=== PATIENT | female | born 1985 | race Caucasian/White ===

== ENCOUNTER 2016-10-22 07:18 | Outpatient (CLI) | payer BC ==
[~2016-10-22] VITALS: Ht 154.9 cm; Wt 61.7 kg
[~2016-10-22 07:18] MED LIST: LOPE2TAB3 PO; PENT500C PO; SULF500TA PO
[2016-10-22] MEDS ORDERED: NS 1,000 ML IV ONE (08:00)
[2016-10-22] MEDS ORDERED: PROPOFOL 200 MG/20 ML VIAL As Ordered ONE ×2 (08:32→08:45)
[2016-10-22] MEDS ORDERED: LIDOCAINE 2% INJ 100 MG/5 ML SDV (FOR ANES.) As Ordered ONE (08:32)
--- NOTE | 2016-10-22 09:06 | ROOR ---
Patient Name: Kelsy Lundy Procedure Date: 10/22/2016 8:29 AM Date of : 1985 Age: 31 Room: [facility] Gender: Female Note Status: Finalized Procedure: Total Colonoscopy to cecum + Bx. Indications: High risk colon cancer surveillance: Crohn's small and large intestine Providers: Deon Wyatt MD Referring MD: Bronson Caicedo Requesting Provider: Medicines: Monitored Anesthesia Care Complications: No immediate complications. Procedure: Pre-Anesthesia Assessment: - The heart rate, respiratory rate, oxygen saturations, blood pressure, adequacy of pulmonary ventilation, and response to care were monitored throughout the procedure. The Colonoscope was introduced through the anus and advanced to the cecum, identified by appendiceal orifice and ileocecal valve. The colonoscopy was performed without difficulty. The patient tolerated the procedure well. The quality of the bowel preparation was fair. Findings: The perianal and digital rectal examinations were normal. Non-bleeding internal hemorrhoids were found during retroflexion. The hemorrhoids were small and Grade I (internal hemorrhoids that do not prolapse). Inflammation characterized by altered vascularity, congestion (edema), erythema, friability, granularity and loss of vascularity was found as patches surrounded by normal mucosa. This was moderate in severity. Biopsies were taken with a cold forceps for histology. A localized area of moderately mucosa was found at 20 cm proximal to the anus. Biopsies were taken with a cold forceps for histology. A localized area of mucosa at the ileocecal valve was severely congested, erythematous and nodular. The exam was otherwise without abnormality. Impression: - Preparation of the colon was fair. - Non-bleeding internal hemorrhoids. - Crohn's disease, with ileitis and colitis. Inflammation was found in the colon. This was moderate in severity. Biopsied. - Mucosa at 20 cm proximal to the anus. Biopsied. - Congested, erythematous and nodular mucosa at the ileocecal valve. - The examination was otherwise normal. - The exam was otherwise normal to the cecum. Recommendation: - Patient has a contact number available for emergencies. The signs and symptoms of potential delayed complications were discussed with the patient. Return to normal activities tomorrow. Written discharge instructions were provided to the patient. - Discharge patient to home. - Continue present medications. - Await pathology results. - Telephone GI clinic for pathology results in 1 week. - The findings and recommendations were discussed with the patient's family. Deon Wyatt MD Deon Wyatt MD 10/22/2016 9:05:59 AM This report has been signed electronically. Number of Addenda: 0 Note Initiated On: 10/22/2016 8:29 AM Estimated Blood Loss: Estimated blood loss: none.
[2016-10-22 09:20] VITALS: BP 111/73
== END 2016-10-22 09:31 | disposition home or self-care (01) ==
LOC: M OPP 07:18
PROVIDERS: ATTEND Internal Medicine Gastroenterology
DX: K50.80 Crohn's disease of both small and large intestine without complications (principal); K64.0 First degree hemorrhoids; K63.89 Other specified diseases of intestine; Z86.010 Personal history of colon polyps; Z88.0 Allergy status to penicillin; Z79.899 Other long term (current) drug therapy; Z80.0 Family history of malignant neoplasm of digestive organs; Z83.71 Family history of colonic polyps

== ENCOUNTER 2016-12-19 10:13 | Inpatient (IN) | payer BC ==
[~2016-12-19] VITALS: Ht 154.9 cm; Wt 61.7 kg
[2016-12-19] MEDS ORDERED: HUMIKIT SQ (10:21)
[2016-12-19] MEDS ORDERED: ONDANSETRON 4MG/2ML VIAL (J2405) IV ONE ×2 (13:45→19:15)
[2016-12-19] MEDS ORDERED: NS 1,000 ML IV ONE (13:45)
[2016-12-19] MEDS ORDERED: GASTROGRAFIN SOLUTION 30ML PO ONE (14:05)
[2016-12-19] MEDS ORDERED: GASTROGRAFIN SOLUTION 30ML (Q9963) PO ONE (14:15)
[2016-12-19] MEDS ORDERED: MORPHINE 2 MG/ML 1ML SYRINGE IV ONE ×2 (14:45→16:45)
[2016-12-19 14:52] LABS: BASO # 0.1 10^3/uL (0.0-0.2); BASO % 0.3 % (0.0-1.0); IMMATURE GRANULOCYTE % 0.4 % (0-0); LYMPH # 0.9 10^3/uL (1.5-4.5); MEAN CORPUSCULAR HEMOGLOBIN 29.1 pg (27.0-33.0); MEAN CORPUSCULAR HGB CONC 33.3 g/dl (32.0-36.5); MEAN CORPUSCULAR VOLUME 87.4 fl (80.0-96.0); MONO # 0.9 10^3/uL (0.0-0.8); MONO % 5.8 % (0.0-5.0); NEUTROPHILS # 13.4 10^3/uL (1.8-7.7); NEUTROPHILS % 87.5 % (36.0-66.0); PLATELET COUNT, AUTOMATED 456 10^3/uL (150-450); RED CELL DISTRIBUTION WIDTH 13.5 % (11.5-14.5); WHITE BLOOD COUNT 15.3 10^3/uL (4.0-10.0)
[2016-12-19 14:57] LABS: ALBUMIN 4.2 GM/DL (3.2-5.2); ALBUMIN/GLOBULIN RATIO 0.88 (1.00-1.93); ALKALINE PHOSPHATASE 72 U/L (45-117); ALT/SGPT 19 U/L (12-78); ANION GAP 6 MEQ/L (8-16); AST/SGOT 11 U/L (15-37); BILIRUBIN,TOTAL 0.7 MG/DL (0.2-1.0); BLOOD UREA NITROGEN 10 MG/DL (7-18); CALCIUM LEVEL 9.6 MG/DL (8.5-10.1); CARBON DIOXIDE LEVEL 31 MEQ/L (21-32); CHLORIDE LEVEL 101 MEQ/L (98-107); CREATININE FOR GFR 0.67 MG/DL (0.55-1.02); GLOMERULAR FILTRATION RATE > 60.0 (>60); GLUCOSE, FASTING 91 MG/DL (70-105); POTASSIUM SERUM 3.8 MEQ/L (3.5-5.1); SODIUM LEVEL 138 MEQ/L (136-145)
[2016-12-19 15:15] LABS: ERYTHROCYTE SEDIMENTATION RATE 19 mm/hr (0-20)
[2016-12-19] MEDS ORDERED: ISOVUE-370 76% 100ML VIAL (Q9967) As Ordered ONE (15:27)
--- NOTE | 2016-12-19 16:49 | REP ---
CT abdomen and pelvis with IV and oral contrast: History: Crohn disease. Vomiting. Abdominal distension. No comparison imaging. CT contrast dose: 100 ml of intravenous Isovue 370. CT findings: Preliminary digital railroad emergency services manager radiograph demonstrates an IUD to the left of midline in the pelvis and clips in the right upper quadrant post cholecystectomy. There are a few scattered small bowel air-fluid levels. The lung bases are clear on axial CT images. No pleural effusion is seen. The liver and the spleen are normal in size and homogeneous in texture. The stomach is moderately distended with ingested fluid. No adrenal lesion is seen on either side. The kidneys enhance symmetrically and are morphologically intact. No pancreatic abnormality is observed. The duodenum is not dilated, however, there is diffuse mild to moderate distension of the proximal small bowel beyond this. A normal appendix is seen. The distal most ileum shows mild to moderate mural thickening and contrast enhancement consistent with involvement and Crohn disease. There is eccentric narrowing and dilation in this segment of the distal ileum. The sigmoid colon is seen coursing adjacent to and inseparable from this inflamed segment of distal ileum and I cannot exclude an ileocolic fistula. There is a small amount of ascites in the pelvic cul-de-sac. No abscess is seen. The uterus is retroverted and contains the IUD. It is tipped to the left. No adnexal pathology is appreciated. There is ascites in the anterior pelvis as well above the urinary bladder surrounding a loop of small intestine. Point of transition is seen in the distal ileum at the level of involvement. There is no evidence of free air. Impression: 1. Evidence of Crohn's involvement of the distal most ileum with eccentric stricturing and moderate small bowel obstruction. There is inflammation of an adjacent loop of sigmoid colon, question fistula. No abscess. There is some pelvic ascites. 2. Moderate gastric distension. 3. Postcholecystectomy. 4. Normal appendix. Signed by Andrew Rose MD 12/19/2016 05:25 P
[2016-12-19] MEDS ORDERED: D5W/0.9% SODIUM CHLORIDE 1,000 ML IV SCH (17:00)
[2016-12-19] MEDS ORDERED: ONDANSETRON 4MG/2ML VIAL (J2405) IV PRN (20:30)
[2016-12-19] MEDS ORDERED: MORPHINE 2 MG/ML 1ML SYRINGE IV PRN (20:30)
[2016-12-19] MEDS ORDERED: PERCOCET 5MG/325MG TAB PO PRN (20:30)
--- NOTE | 2016-12-19 22:49 | HPE ---
DATE OF ADMISSION: 12/19/2016 PRIMARY CARE PROVIDER: Dr. Madden in [place] SEWING MACHINE MECHANIC: Dr. Wyatt CHIEF COMPLAINT: Abdominal pain and vomiting. HISTORY OF THE PRESENT ILLNESS: The patient is a 31-year-old female with known Crohn's and a known terminal ileal stricture, which Dr. Wyatt did scope recently and tell her that it was getting worse. Yesterday, she was in her usual state of health; however, in the evening, she began to have significant abdominal pain. She went to sleep and this morning she vomited up all the food that she had eaten the previous day and has been having vomiting since as well as abdominal pain in the epigastric region without radiation. She has not had an episode like this in the past. She denies fevers, chills, chest pain, shortness of breath, change in diet. She normally has a regular diet. She was recently started on Humira for the last 2 weeks. PAST MEDICAL HISTORY: Crohn's disease. Internal hemorrhoids. HOME MEDICATIONS: - Humira 40 mg injected every other ALLERGIES: PENICILLIN. PAST SURGICAL HISTORY: Cholecystectomy. Thoracic outlet surgery. SOCIAL HISTORY: She lives with her mother. 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 She denies alcohol or tobacco. FAMILY HISTORY: Noncontributory. REVIEW OF SYSTEMS: Negative other than in the history of the present illness. PHYSICAL EXAMINATION: Temperature 98.9, pulse 85, respiratory rate 16, blood pressure 103/71, oxygen saturation 98% on room air. GENERAL: She is a very pleasant young female sitting up in bed. She does not appear to be in any acute distress. HEENT: Cranial nerves II-XII are grossly intact. She has moist mucous membranes. No elevation of central venous pressure (CVP). CARDIOVASCULAR EXAM: S1, S2, regular. RESPIRATORY EXAM: Clear. ABDOMINAL EXAM: Bowel sounds are diminished. Her abdomen is diffusely tender to palpation but more so in the epigastric region. EXTREMITIES: No clubbing, cyanosis or edema. LABORATORY STUDIES: WBC 15.3, hemoglobin 15.7, platelet count 456. ESR is 19. Chemistry panel: Sodium 138, potassium 3.8, chloride 101, bicarbonate 31, BUN 10, creatinine 0.6. Liver function tests are essentially unremarkable. CT scan of the abdomen and pelvis is concerning for evidence of Crohn's involvement of the distal most ileum with eccentric stricturing and moderate small bowel obstruction. There is inflammation of an adjacent loop of sigmoid colon, question fistula. No abscess. There is some pelvic ascites. Moderate gastric distention. Post cholecystectomy. Normal appendix. ASSESSMENT AND PLAN: This is a 31-year-old female with Crohn's disease. Problems: 1. Crohn's disease. She has a known stricture of the terminal ileum. At this point in time, there appears to be at least moderate small bowel obstruction relating to the stricture. Her history is suggestive of this; although it is rather acute in nature. The stricture has not slowly grown and she has not grown slowly intolerant to food, rather it was an abrupt change overnight. There is certainly the possibility that she may be having a flareup of her Crohn's in this anatomical region to result in acute worsening. However, her ESR is fairly flat. We will check a CRP and trend her WBCs. At the present time, my suspicion for infectious etiology is low. However, she is on Humira. Will continue to monitor her heart rate, temperature, her leukocytosis, which may be acute phase reactant. Will check a GI PCR panel if she has any diarrhea, blood cultures, urine cultures, urinalysis as well as a lactic acid. Should her infectious workup be negative, could consider a course of prednisone to see if this improves her symptoms and she is able to tolerate by mouth. However, for the time being, I have spoken with Dr. Duvall, and he wishes her to remain by mouth (p.o.) until infectious etiology is ruled out, to hold off on prednisone. He will see the patient in consultation. I also did speak with Dr. Coulter. Unfortunately, this anatomic area is not amenable to stenting. If she fails to improve with medical therapies, she may require surgery, but there is concern for fistula by CT imaging. Dr. Coulter has informed me he will read the images himself and will see the patient in consultation as well. She does have some gastric distention related to her bowel obstruction. I will hold off on placing a nasogastric (NG) tube now as the patient is comfortable, her abdominal exam is quiet and her abdomen is soft and not distended at this time. She will be provided with pain medication, antiemetics. 2. Deep vein thrombosis (DVT) prophylaxis. She is on Lovenox. Her Humira is on hold. DISPOSITION: She is admitted to the medical-surgical floor to Dr. Kelsy Barajas's service, who will continue following the patient at 7:00 a.m.
[2016-12-19] MEDS: NS 1,000 ML IV SCH (23:25)
[2016-12-19 23:30] VITALS: BP 109/72
[2016-12-19] MEDS: PERCOCET 5MG/325MG TAB PO PRN (23:35)
[2016-12-20 07:21] LABS: MEAN CORPUSCULAR HEMOGLOBIN 28.4 pg (27.0-33.0); MEAN CORPUSCULAR HGB CONC 32.3 g/dl (32.0-36.5); MEAN CORPUSCULAR VOLUME 87.9 fl (80.0-96.0); RED CELL DISTRIBUTION WIDTH 13.3 % (11.5-14.5); WHITE BLOOD COUNT 7.9 10^3/uL (4.0-10.0)
[2016-12-20 07:49] LABS: ANION GAP 4 MEQ/L (8-16); BLOOD UREA NITROGEN 10 MG/DL (7-18); CARBON DIOXIDE LEVEL 30 MEQ/L (21-32); CHLORIDE LEVEL 107 MEQ/L (98-107); CREATININE FOR GFR 0.49 MG/DL (0.55-1.02); GLOMERULAR FILTRATION RATE > 60.0 (>60); GLUCOSE, FASTING 81 MG/DL (70-105); POTASSIUM SERUM 3.7 MEQ/L (3.5-5.1); SODIUM LEVEL 141 MEQ/L (136-145)
[2016-12-20] MEDS: PERCOCET 5MG/325MG TAB PO PRN (07:59)
[2016-12-20 08:00] VITALS: BP 101/67
[2016-12-20] MEDS: ENOXAPARIN 40 MG/0.4 ML SYRINGE (J1650) SC SCH (08:13)
--- NOTE | 2016-12-20 09:41 | CR.PDOC ---
[facility] Consultation Consultation DATE OF CONSULTATION: Dec 19, 2016 at 17:13 PRIMARY CARE PHYSICIAN: Dr. Wyatt. REFERRING PROVIDER: Dr. Morrison REASON FOR CONSULTATION/CHIEF COMPLAINT: Crohns disease.. Primary physician/ hospitalist: Reason for consult: HPI: 31-year-old female patient with diagnosed Crohns disease (since age 18 years) - involving terminal ileum and entire colon - moderate to severe - last colonoscopy in October [address] Wyatt - noted severe inflammation (no documented fistula), recently started on Humira, (received third dose today), came to year for complaints of abdominal pain nausea and vomiting. GI consulted for the same. Patient reports worsening abdominal pain with nausea and vomiting today morning, after which she stopped eating anything, but due to persistent pain came to emergency room. Patient denies any further vomiting but feels abdomen is bloated and able to pass gas. Pertinent negative GI symptoms: Patient denies fever or chills, sick contacts , loss of appetite, early satiety or unintentional weight loss. No history of hematemesis, melena. Review of Systems: GI: as stated above CVS: No chest pain, No palpitations, No leg swelling. RS: No Shortness of breath, No Wheezing, no cough BALL RACKER: No dizziness, No motor weakness, No sensory problems Hematology: No bruising, No gum bleeding, Musculoskeletal: No joint pain, ambulating well. Skin: No rash : No hematuria, No burning sensation of the urine ENT: No ear discharge/ pain, No dysphagia. Eyes: No photophobia. Home medications: reviewed. Antithrombotic agents - none Medical h/o: As above. Surgical h/o: None on abdomen. Social h/o: Alcohol denies, smoking denies, IVDA/ drugs denies. Family h/o of GI cancers - None Prior Endoscopies: --- EGD none --- Colonoscopy recent colonoscopy in October [address] Wyatt-- report reviewed in provation. Prior GI evaluation: Follows with Dr. Wyatt Exam: Vitals: reviewed General: Alert and oriented x 3, mild distress from abdominal pain HEENT: NO pallor, no icterus. Normal oropharynx, NO cervical lymph nodes. Chest: symmetric with bilateral clear air entry, CVS: S1, S2 heard, normal, no murmurs . Abdomen: non-distended, no surgical scars, soft, non-tender, no palpable masses , normal bowel sounds heard. Rectal exam: Patient refused / Deferred at this time in view of recent colonoscopy. Extremities: no pedal edema, pulses palpable. BALL RACKER: no focal motor or sensory deficits. Moves all extremities Skin: no rash. Labs: reviewed. HCV screening indicated ordered / done OR Not indicated due to age. Imaging: reviewed CT scan of the abdomen and pelvis with IV and by mouth contrast --- is concerning for evidence of Crohn's involvement of the distal most ileum with eccentric stricturing and moderate small bowel obstruction. There is inflammation of an adjacent loop of sigmoid colon, question fistula. No abscess. There is some pelvic ascites. Moderate gastric distention. Post cholecystectomy. Normal appendix. Impression: - Severe Crohns ileocolitis -- with acute flare. Recent colonoscopy - severe mucosal disease - no evidence of fistula. Rule out infection. - Abnormal CT abdomen -- concern for fistula. Recommendations: - Patient educated about the test results, possible differential diagnoses and All questions answered. - Nothing by mouth - IV hydration - Septic workup including blood culture, UA, urine culture, stool panel, C. difficile. - If septic workup negative -- please start on short course of steroids (prefer oral prednisone) for 1 -2 weeks. - To continue Humira biweekly for now. - Obtain CT or MR enterography if persistent abdominal pain and vomiting. Consider surgery evaluation if persistent nausea and vomiting. - Advance diet gradually tomorrow if tolerated. - Upon discharge patient to follow up with Dr. Wyatt. Plan of care discussed with patient and primary team. Patient verbalized understanding and agreed with the plan. Please call me for any further questions. Allergies Coded Allergies: Penicillins (Verified Allergy, Intermediate, rash, 12/19/16) Home Medications Scheduled (Humira Pen-Crohns Disease) 40 Mg/0.8 Ml Kit, 80 MG SQ Q2WK, (Reported) EVERY OTHER FRIDAY JORDYN BLACKWELL MD Dec 20, 2016 09:41
--- NOTE | 2016-12-20 12:11 | IPNPDOC ---
Subjective Date Seen The patient was seen on 12/20/16. Subjective Chief Complaint/HPI The patient is a 31-year-old female admitted with a reason for visit of Crohn's Disease Involving Terminal Ileum. Events since last encounter abdominal pain better with pain medications , no bowel movement for 3 days , She feels that she had some oatmeat with apple pieces and raisins which brought on the pain . Usually her crohns has not been well controlled recently was having 5 to 6 bowel movements daily so was started of Humira in nov by Dr Wyatt. No fever or chills, no chest pain or sob , no nausea or vomiting . Objective Physical Examination General Exam: Positive: Alert, Cooperative, No Acute Distress Eye Exam: Positive: PERRLA, Conjunctiva & lids normal, EOMI, Negative: Sclera icteric ENT Exam: Positive: Atraumatic, Mucous membr. moist/pink, Pharynx Normal Neck Exam: Positive: Supple, Negative: JVD, thyromegaly Chest Exam: Positive: Clear to auscultation, Normal air movement Heart Exam: Positive: Rate Normal, Regular Rhythm, Normal S1, Normal S2, Negative: Murmurs, Rubs Abdomen Exam: Positive: BS Hyperactive, Soft, Tenderness (mild tenderness on all quadrants, no guarding or rigidity.) Extremity Exam: Positive: Normal pulses, Negative: Clubbing, Cyanosis, Edema Skin Exam: Positive: Nl turgor and temperature, Negative: Rash, Breakdown Assessment /Plan Problems (1) Crohn's disease involving terminal ileum Status: Acute Problem Text: with exacerbation . has some strictures also will continue with ivf and pain meds, npo . allow sips of water. Gi and Surgery to evaluate. Plan/VTE VTE Prophylaxis Ordered?: Yes VS, I&O, 24H, Fishbone Vital Signs/I&O Vital Signs Date Time Temp Pulse Resp B/P (MAP) Pulse Ox O2 Delivery O2 Flow Rate FiO2 12/20/16 08:45 15 12/20/16 08:00 98.6 67 101/67 (78) 98 Room Air I&O- Last 24 Hours up to 6 AM 12/21/16 06:00 Output Total 100 ml Balance -100 ml Laboratory Data 24H LABS Laboratory Tests 2 12/19/16 14:22: Immature Granulocyte % (Auto) 0.4H, White Blood Count 15.3H, Red Blood Count 5.40, Hemoglobin 15.7, Hematocrit 47.2H, Mean Corpuscular Volume 87.4, Mean Corpuscular Hemoglobin 29.1, Mean Corpuscular Hemoglobin Concent 33.3, Red Cell Distribution Width 13.5, Platelet Count 456H, Neutrophils (%) (Auto) 87.5H, Lymphocytes (%) (Auto) 6.0L, Monocytes (%) (Auto) 5.8H, Eosinophils (%) (Auto) 0.0, Basophils (%) (Auto) 0.3, Neutrophils # (Auto) 13.4H, Lymphocytes # (Auto) 0.9L, Monocytes # (Auto) 0.9H, Eosinophils # (Auto) 0.0, Basophils # (Auto) 0.1 , Immature Granulocyte # (Auto) 0.1H, Nucleated Red Blood Cells % (auto) 0.0, Erythrocyte Sedimentation Rate 19, Anion Gap 6L, Glomerular Filtration Rate > 60.0, Blood Urea Nitrogen 10, Creatinine 0.67, Sodium Level 138, Potassium Level 3.8, Chloride Level 101, Carbon Dioxide Level 31, Calcium Level 9.6, Aspartate Amino Transf (AST/SGOT) 11L, Alanine Aminotransferase (ALT/SGPT) 19, Alkaline Phosphatase 72, Total Bilirubin 0.7, Total Protein 9.0H, Albumin 4.2, Albumin/Globulin Ratio 0.88L 12/19/16 19:39: Urine Appearance CLEAR, Urine Color YELLOW, Urine pH 5.0, Urine Specific [place] >1.060H, Urine Protein NEGATIVE, Urine Glucose (UA) NEGATIVE, Urine Ketones 2+H, Urine Urobilinogen 2.0H, Urine Bilirubin NEGATIVE, Urine Leukocyte Esterase NEGATIVE, Urine Blood NEGATIVE, Urine Nitrite NEGATIVE, Urine WBC (Auto ) 0, Urine RBC (Auto) 1, Urine Hyaline Casts (Auto) 0, Urine Bacteria (Auto) NEGATIVE, Urine Squamous Epithelial Cells 0, Urine Mucus (Auto) SMALL, Urine Sperm (Auto) 12/19/16 20:09: Erythrocyte Sedimentation Rate 12, Lactic Acid Level 1.2, C-Reactive Protein, Quantitative 1.60H 12/20/16 07:01: Anion Gap 4L, Glomerular Filtration Rate > 60.0, Blood Urea Nitrogen 10, Creatinine 0.49L, Sodium Level 141, Potassium Level 3.7, Chloride Level 107, Carbon Dioxide Level 30, Calcium Level 8.0#L CBC/BMP Laboratory Tests 12/19/16 14:22 Red Blood Count 5.40, Mean Corpuscular Volume 87.4, Mean Corpuscular Hemoglobin 29.1, Mean Corpuscular Hemoglobin Concent 33.3, Red Cell Distribution Width 13.5 , Neutrophils (%) (Auto) 87.5 H, Lymphocytes (%) (Auto) 6.0 L, Monocytes (%) ( Auto) 5.8 H, Eosinophils (%) (Auto) 0.0, Basophils (%) (Auto) 0.3, Neutrophils # (Auto) 13.4 H, Lymphocytes # (Auto) 0.9 L, Monocytes # (Auto) 0.9 H, Eosinophils # (Auto) 0.0, Basophils # (Auto) 0.1, Calcium Level 9.6, Aspartate Amino Transf (AST/SGOT) 11 L, Alanine Aminotransferase (ALT/SGPT) 19, Alkaline Phosphatase 72, Total Bilirubin 0.7, Total Protein 9.0 H, Albumin 4.2 12/20/16 07:01 Red Blood Count 4.22, Mean Corpuscular Volume 87.9, Mean Corpuscular Hemoglobin 28.4, Mean Corpuscular Hemoglobin Concent 32.3, Red Cell Distribution Width 13.3 , Calcium Level 8.0 #L Microbiology Microbiology 12/19/16 Blood Culture, Received Pending 12/19/16 Blood Culture, Received Pending 12/19/16 Urine Culture, Received Pending HAILE SAHA MD Dec 20, 2016 12:11
[2016-12-20 16:00] VITALS: BP 109/62
--- NOTE | 2016-12-20 17:00 | CR ---
DATE OF CONSULTATION: 12/20/2016 REASON FOR CONSULTATION: Crohn's disease with intestinal obstruction. HISTORY OF PRESENT ILLNESS: The patient is a very pleasant 31-year-old woman who has a 10 or more-year history of Crohn's disease. She had initially been followed by a physician in [place]. She was treated for a time with Pentasa and other oral medications. For a time, she was off medication without a primary glazier structural glass monitoring her Crohn's disease. More recently, she had seen Dr. Wyatt in [place] and underwent a colonoscopy in October of this year. He then started her on Humira for management of her Crohn's disease. She completed her third dose yesterday, December 19. The patient apparently has signs of disease in both the terminal ileum and the colon. She reports a history of significant cramping, particularly following meals with cramping and several bowel movements, her usual course after a meal. She has not had any fevers or chills. On December 19, her discomfort became much more significant, and she presented to the emergency department for evaluation. She underwent evaluation to include a CT scan of the abdomen and pelvis, which revealed some degree of obstruction at a stricture in the distal ileum. The stomach was largely full of fluid. She was admitted by the hospitalist service. She had a consultation from gastroenterology. The hospitalist had asked me to see her regarding this possible obstruction as well as a suggestion of inflammation between the terminal ileum and the adjacent sigmoid colon and whether this could represent a fistula. ALLERGIES: The patient reports an allergy to PENICILLIN, which leads to a rash. HOME MEDICATIONS: Her only home medication recently has been Humira 40 mg every other . SURGICAL HISTORY: Significant for cholecystectomy and she has also apparently had surgery for thoracic outlet syndrome. SOCIAL HISTORY: She lives with her mother. 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 She does not smoke nor drink alcohol. FAMILY HISTORY: Noncontributory. REVIEW OF SYSTEMS: Reveals no cardiac, respiratory, musculoskeletal, or genitourinary problems. She has only the issues associated with her Crohn's disease. PHYSICAL EXAMINATION: Patient is sitting up in the hospital bed, alert and oriented. Her most recent vital signs show a temperature of 98.6 with a pulse of 67, respirations of 18, and a blood pressure of 101/67. Pulse is regular, and she is not tachycardiac. She is breathing easily. Sclerae are anicteric, and her mucous membranes are moist. The abdomen is flat. She has bowel sounds present. There is no tympany to percussion. On palpation, the abdomen is soft, but she does have some mild to moderate, somewhat diffuse tenderness in the epigastrium in particular. There is no point tenderness. There is no evident hernia. Extremities are without edema. Her laboratory studies today show a white count of 7.9 with a hemoglobin of 12, hematocrit of 37, and a platelet count of 337,000. Her chemistry profile shows normal electrolytes with BUN of 10, creatinine 0.49, and glucose of 81. CT scan imaging I reviewed personally. The gallbladder is surgically absent. She has some thickening in the terminal ileum with a fairly short-segment stricture. Slightly inferior and medial to this there is a thickened area in the sigmoid colon. These areas of narrowing are adjacent but not in contact, and I think it is unlikely that this represents a fistula. There is no free air and no sign of abscess. There is some mild dilation of the small bowel, which is filled with fluid, and likewise the stomach is full of fluid at the time of the study. IMPRESSION: 1. Crohn's disease with terminal ileal stricture and also some thickening in the sigmoid colon. 2. Partial obstruction secondary to terminal ileal obstruction. RECOMMENDATIONS: At this point, the patient seems to be doing well without any overt signs of a complete obstruction. She reports that she has been belching, but she is having less pain today, and she has been sipping some water without difficulty. The abdomen is not distended, and though she has some mild tenderness, I suspect that her obstruction is improved today over yesterday. I will leave it to the glazier structural glass and the hospitalist to manage her Crohn' s disease. I did advise her that there could come a time when her stricture will not respond to therapy due to significant fibrosis, which will not respond to steroids and other agents. At that point, she may well require a surgical procedure to eliminate the stricture. At this point, the patient seems to have been improved, and I will not therefore follow her regularly. Certainly, if there are surgical problems, I can be contacted to come back to see her again. DANIEL
[2016-12-20] MEDS: NS 1,000 ML IV SCH (18:15)
[2016-12-20 20:00] VITALS: BP 110/71
[2016-12-20] MEDS: metroNIDAZOLE (FLAGYL) 500 MG TAB PO SCH (22:42)
[2016-12-21 04:00] VITALS: BP 101/63
[2016-12-21] MEDS: metroNIDAZOLE (FLAGYL) 500 MG TAB PO SCH ×3 (06:24→21:57)
[2016-12-21 06:37] LABS: MEAN CORPUSCULAR HEMOGLOBIN 29.2 pg (27.0-33.0); MEAN CORPUSCULAR HGB CONC 32.9 g/dl (32.0-36.5); MEAN CORPUSCULAR VOLUME 88.6 fl (80.0-96.0); RED CELL DISTRIBUTION WIDTH 13.3 % (11.5-14.5); WHITE BLOOD COUNT 7.6 10^3/uL (4.0-10.0)
[2016-12-21 06:57] LABS: ANION GAP 8 MEQ/L (8-16); BLOOD UREA NITROGEN 7 MG/DL (7-18); CALCIUM LEVEL 7.7 MG/DL (8.5-10.1); CARBON DIOXIDE LEVEL 26 MEQ/L (21-32); CHLORIDE LEVEL 106 MEQ/L (98-107); CREATININE FOR GFR 0.38 MG/DL (0.55-1.02); GLOMERULAR FILTRATION RATE > 60.0 (>60); GLUCOSE, FASTING 72 MG/DL (70-105); POTASSIUM SERUM 3.9 MEQ/L (3.5-5.1); SODIUM LEVEL 140 MEQ/L (136-145)
[2016-12-21 08:00] VITALS: BP 111/71
[2016-12-21] MEDS: ENOXAPARIN 40 MG/0.4 ML SYRINGE (J1650) SC SCH (10:33)
--- NOTE | 2016-12-21 12:32 | IPNPDOC ---
Subjective Date Seen The patient was seen on 12/21/16. Subjective Chief Complaint/HPI The patient is a 31-year-old female admitted with a reason for visit of Crohn's Disease Involving Terminal Ileum. Events since last encounter Ms. Lundy appears to be feeling better this morning. She denies any episodes overnight and. She currently does not have any nausea, vomiting. She does continue to have some diarrhea however. She is requesting to have her diet advanced because she is feeling better. This will be provided. Otherwise, she denies any fevers, chills, night sweats, and the remainder of her review of systems is completely negative. Objective Physical Examination General Exam: Positive: Alert, Cooperative, No Acute Distress Eye Exam: Positive: Conjunctiva & lids normal, EOMI, Negative: Sclera icteric ENT Exam: Positive: Atraumatic, Mucous membr. moist/pink, Pharynx Normal Neck Exam: Positive: Supple, Negative: JVD, thyromegaly Chest Exam: Positive: Clear to auscultation, Normal air movement, Negative: Rales, Rhonchi, Wheezing Heart Exam: Positive: Rate Normal, Regular Rhythm, Negative: Murmurs, Rubs Abdomen Exam: Positive: Normal bowel sounds, Soft, Tenderness (mild tenderness throughout, no guarding or rigidity) Extremity Exam: Positive: Normal pulses, Negative: Clubbing, Cyanosis, Edema Skin Exam: Positive: Nl turgor and temperature, Negative: Rash, Breakdown Psych Exam: Positive: Mental status NL, Mood NL Assessment /Plan Problems (1) Crohn's disease involving terminal ileum Status: Acute Problem Text: This appears to be an acute exacerbation of her Crohn's disease in the terminal ileum, on top of the fact that she may also have some chronic strictures. She has not taken any pain medications during the night or this morning, she does feel up to advancing her diet. She has been started on a clear liquids diet, she would like to attempt full liquids. I have put in the order to advance her diet as tolerated. For now we will continue the IV fluids , and if she continues to tolerate oral well we may discontinue these later on. (2) C. difficile colitis Status: Acute Problem Text: In light of the fact that she is on Humira, it is not unreasonable to expect that she would not have any fevers or leukocytosis. Given that she does have a recent onset of diarrhea, and her GI panel is positive for C. difficile colitis, we will continue with the administration of by mouth Flagyl which was started by the nighttime doctor. We will defer to gastroenterology if they wish to continue this or change to a different antibiotic. Their input in the matter is greatly appreciated. Plan/VTE VTE Prophylaxis Ordered?: Yes (Lovenox) VS, I&O, 24H, Fishbone Vital Signs/I&O Vital Signs Date Time Temp Pulse Resp B/P (MAP) Pulse Ox O2 Delivery O2 Flow Rate FiO2 12/21/16 08:33 Room Air 12/21/16 08:00 99.0 82 18 111/71 (84) 100 I&O- Last 24 Hours up to 6 AM 12/22/16 06:00 Intake Total 600 ml Output Total 400 ml Balance 200 ml Laboratory Data 24H LABS Laboratory Tests 2 12/21/16 06:14: Anion Gap 8, Glomerular Filtration Rate > 60.0, Blood Urea Nitrogen 7, Creatinine 0.38L, Sodium Level 140, Potassium Level 3.9, Chloride Level 106, Carbon Dioxide Level 26, Calcium Level 7.7L CBC/BMP Laboratory Tests 12/21/16 06:14 Red Blood Count 3.77 L, Mean Corpuscular Volume 88.6, Mean Corpuscular Hemoglobin 29.2, Mean Corpuscular Hemoglobin Concent 32.9, Red Cell Distribution Width 13.3, Calcium Level 7.7 L Microbiology Microbiology 12/19/16 Blood Culture - Preliminary, Resulted No growth after 24 hours . All specim... 12/19/16 Blood Culture - Preliminary, Resulted No growth after 24 hours . All specim... 12/20/16 Gastrointestinal Tract Panel (PCR) - Final, Complete Clostridium Difficile A/B 12/19/16 Urine Culture - Final, Complete SILVIANO OSORIO DO Dec 21, 2016 12:32
[2016-12-21] MEDS: NS 1,000 ML IV SCH (13:53)
[2016-12-21 16:00] VITALS: BP 105/70
[2016-12-21 20:00] VITALS: BP 107/70
--- NOTE | 2016-12-21 23:50 | IPNPDOC ---
Date Seen The patient was seen on 12/21/16. at 16: 15. Progress Note Interval History: Patient is noted to have diarrhea - with Stool testing positive for C. difficile. Patient denies any fever, chills, and no further nausea or vomiting. She is tolerating full liquid diet. Still has mild abdominal pain but much improved from before. Exam: Vitals: noted. Afebrile. No tachycardia. BP stable. HEENT: no pallor, no icterus. Abdomen: soft, non - distended. normal bowel sounds. Minimal tenderness but no rigidity or guarding. Extremities No pedal edema. Labs: reviewed. Normal WBC. C. difficile positive. Imaging: reviewed CT scan of the abdomen and pelvis with IV and by mouth contrast --- is concerning for evidence of Crohn's involvement of the distal most ileum with eccentric stricturing and moderate small bowel obstruction. There is inflammation of an adjacent loop of sigmoid colon, question fistula. No abscess. There is some pelvic ascites. Moderate gastric distention. Post cholecystectomy. Normal appendix. Impression: - Severe Crohns ileocolitis -- with acute flare -- likely related to community acquired C. difficile infection. Recent colonoscopy - severe mucosal disease - no evidence of fistula. Rule out infection. - Abnormal CT abdomen -- concern for fistula. - C. difficile diarrhea- community acquired. Recommendations: - Patient educated about the test results, possible differential diagnoses and All questions answered. - Agree with IV metronidazole 500mg three times daily for 14 days. ( upon discharge can change to oral formulation). - IV hydration - Advance diet as tolerated. - As patient had C. difficile - will not star ton steroids at this time. Patient can continue with the humira injections biweekly for now. - Obtain CT or MR enterography if persistent abdominal pain and vomiting. - Upon discharge patient to follow up with Dr. Wyatt. - Recall GI if any change in status. Plan of care discussed with patient and primary team. Patient verbalized understanding and agreed with the plan. Please call me for any further questions. VS, I&O, 24H, Fishbone Laboratory Data CBC/BMP Laboratory Tests 12/21/16 06:14 Red Blood Count 3.77 L, Mean Corpuscular Volume 88.6, Mean Corpuscular Hemoglobin 29.2, Mean Corpuscular Hemoglobin Concent 32.9, Red Cell Distribution Width 13.3, Calcium Level 7.7 L Microbiology Microbiology 12/19/16 Blood Culture - Preliminary, Resulted No Growth after 48 hours. All Specime... 12/19/16 Blood Culture - Preliminary, Resulted No Growth after 48 hours. All Specime... 12/20/16 Gastrointestinal Tract Panel (PCR) - Final, Complete Clostridium Difficile A/B 12/19/16 Urine Culture - Final, Complete JORDYN BLACKWELL MD Dec 21, 2016 23:50
[2016-12-22] VITALS: BP_SYST 101; BP_SYST 118; BP_DIAS 59; BP_DIAS 63
[2016-12-22] MEDS: metroNIDAZOLE (FLAGYL) 500 MG TAB PO SCH (06:20)
[2016-12-22 06:42] LABS: MEAN CORPUSCULAR HEMOGLOBIN 29.1 pg (27.0-33.0); MEAN CORPUSCULAR VOLUME 88.2 fl (80.0-96.0); RED CELL DISTRIBUTION WIDTH 13.4 % (11.5-14.5); WHITE BLOOD COUNT 5.4 10^3/uL (4.0-10.0)
[2016-12-22 07:03] LABS: ANION GAP 6 MEQ/L (8-16); BLOOD UREA NITROGEN 5 MG/DL (7-18); CALCIUM LEVEL 8.2 MG/DL (8.5-10.1); CARBON DIOXIDE LEVEL 29 MEQ/L (21-32); CHLORIDE LEVEL 107 MEQ/L (98-107); CREATININE FOR GFR 0.39 MG/DL (0.55-1.02); GLOMERULAR FILTRATION RATE > 60.0 (>60); GLUCOSE, FASTING 85 MG/DL (70-105); POTASSIUM SERUM 3.4 MEQ/L (3.5-5.1); SODIUM LEVEL 142 MEQ/L (136-145)
[2016-12-22 08:00] VITALS: BP 102/65
[2016-12-22] MEDS: ENOXAPARIN 40 MG/0.4 ML SYRINGE (J1650) SC SCH (08:07)
[2016-12-22] MEDS ORDERED: POTASSIUM CHLORIDE 10 MEQ SR TABLET PO SCH (09:00)
[2016-12-22] MEDS ORDERED: FLAG500T PO (09:54)
--- NOTE | 2016-12-23 16:00 | DSES ---
DATE OF ADMISSION: 12/19/2016 DATE OF DISCHARGE: 12/22/2016 PRIMARY CARE PROVIDER: Dr. Madden in [place] [facility] LABORER: Dr. Deon Wyatt DISCHARGE DIAGNOSES: 1. Clostridium (C) difficile from colitis, community-acquired. 2. Severe Crohn's ileocolitis with acute flare, likely related to C. difficile infection. 3. 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 DISCHARGE MEDICATIONS: - metronidazole 500 mg by mouth every 8 hours - Humira 40 mg/0.8 mL kit 18 mg subcutaneous every 2 weeks HOSPITAL COURSE: This is a 31-year-old female with severe Crohn's ileocolitis with known terminal ileum stricture, presented to the hospital with 1 day history of severe abdominal pain and vomiting and diarrhea, which had changed over the past 2 weeks from her usual bowel habits. She was recently started on Humira in November 2016. Patient had a CT scan done in the emergency room which showed Crohn's involvement of the distal most ileum with eccentric stricturing and moderate small bowel obstruction. There was an inflammation in the adjacent lobe of the sigmoid colon and there was a question of fistula. No abscess. Moderate gastric distention. Patient was diagnosed with Crohn's flare and partial bowel obstruction and admitted to the hospitalist service. Patient had a gastrointestinal (GI) panel done which came back positive for C. difficile and was diagnosed with C. difficile colitis. She was started on metronidazole. Patient's abdominal pain improved with bowel rest and IV fluids. She was seen by surgery, Dr. Coulter, and gastroenterology, Dr. Duvall. As per surgery, her partial bowel obstruction was resolving and there were no signs of fistula on the CT abdomen. As per gastroenterology, it was felt her symptoms had worsened due to the community-acquired C. difficile and would improve with treatment of C. difficile. On the day of discharge, patient did not have any symptoms, vital signs were stable, and she was functionally at baseline. PHYSICAL EXAMINATION: VITAL SIGNS: Temperature 98.4, pulse 88, respiratory rate 16, blood pressure 102/65, pulse oximetry 99% in room air. GENERAL: Patient awake, alert, oriented times three, sitting up in bed, in no acute distress. HEENT: Normocephalic, atraumatic. Moist mucous membranes. Anicteric eyes. CHEST: Clear to auscultation. CARDIOVASCULAR: S1, S2, regular. No rub, murmur, or gallop. ABDOMEN: Soft, nontender. Bowel sounds present. EXTREMITIES: No edema. LABORATORY DATA: WBC 5.4, hemoglobin 10.9, platelets 317, sodium 142, potassium 3.4 (replaced), chloride 107, bicarbonate 29, BUN 5, creatinine 0.3, calcium 8.2, CRP 1.6, ESR 12, lactate 1.2. Blood cultures are negative after 72 hours. Urine culture is negative. DISPOSITION: Patient is discharged home in a stable condition. DISCHARGE INSTRUCTIONS: Patient to followup with Dr. Wyatt in 1-2 weeks. Full liquid diet for 2 days, then start regular diet. Activity as tolerated.
== END 2016-12-22 11:45 | disposition home or self-care (01) | DRG 248 ==
LOC: M ED 10:13 → M ED INP 20:25 → M PED 23:11
PROVIDERS: ADMIT Internal Medicine; ATTEND Internal Medicine Nephrology
DX: A04.72 Enterocolitis due to Clostridium difficile, not specified as recurrent (principal); K50.012 Crohn's disease of small intestine with intestinal obstruction; K56.609 Unspecified intestinal obstruction, unspecified as to partial versus complete obstruction; Z88.0 Allergy status to penicillin; Z79.899 Other long term (current) drug therapy

== ENCOUNTER → 2018-10-14 | Outpatient (REF) | payer BC ==
[~2018-10-14] MED LIST changes: +FLAG500T PO; +HUMIKIT SQ
== END ==
LOC: M SFHCLERA 12:04
PROVIDERS: ATTEND Nurse Practitioner Family
DX: R39.9 Unspecified symptoms and signs involving the genitourinary system (principal)

== ENCOUNTER → 2018-11-04 | Outpatient (REF) | payer BC ==
[2018-11-04 20:22] LABS: CHLAMYDIA DNA AMPLIFICATION NEGATIVE (NEGATIVE); GC DNA AMPLIFICATION NEGATIVE (NEGATIVE)
== END ==
LOC: M SFHCLERA 10:32
PROVIDERS: ATTEND Nurse Practitioner Family
DX: R30.0 Dysuria (principal)

== ENCOUNTER 2021-10-03 09:35 | Day surgery (SDC) | payer BC ==
[~2021-10-03] VITALS: Ht 154.9 cm; Wt 74.8 kg
[~2021-10-03 09:35] MED LIST changes: +HUMI40IN2 SC; +LIDOCAINE 2% 100MG/5ML SDV (FOR ANES.) As Ordered ONE; +LOPE2TAB14 PO; +NS 1,000 ML IV ONE; +SULF500T56 PO; -SULF500TA PO; +propofoL 200 MG/20 ML VIAL As Ordered ONE
[2021-10-03 11:26] VITALS: BP 113/68
== END 2021-10-03 11:28 | disposition home or self-care (01) ==
LOC: M OPP 09:35
PROVIDERS: ATTEND Internal Medicine Gastroenterology
DX: K64.0 First degree hemorrhoids (principal); Z98.0 Intestinal bypass and anastomosis status; K50.80 Crohn's disease of both small and large intestine without complications; K63.89 Other specified diseases of intestine; Z79.899 Other long term (current) drug therapy; Z88.0 Allergy status to penicillin; Z88.1 Allergy status to other antibiotic agents; Z90.49 Acquired absence of other specified parts of digestive tract